=== PATIENT | male | born 1950 | race Caucasian/White ===

== ENCOUNTER 2016-06-25 17:04 | Emergency (ER) | payer MEDICARE, OTHER ==
[~2016-06-25] VITALS: Ht 180.3 cm; Wt 150.0 kg
[2016-06-25] VITALS (7 sets, daily range): BP systolic 123–185; BP diastolic 59–106; PULSE 75–108; RESP 16–28; O2SAT 94–99
[~2016-06-25 17:04] MED LIST: ASPI-956 PO; ATEN1TAB PO; GLU500 PO; LOVA20TA7 PO; MULT-1018 PO; OMEG100020 PO; ZES20T PO; ZINC1CAP PO
--- NOTE | 2016-06-25 18:27 | DRSVH ---
PROCEDURE: X-RAY CHEST, TWO VIEWS ([id number]) INDICATIONS: cough, congestion, fever TECHNIQUE: 2 views of the chest were acquired. COMPARISON: None. FINDINGS: Surgical changes and devices: None. Lungs and pleura: No pleural effusions or pneumothorax. Lungs are clear but the lungs are abnormal with pulmonary hyperexpansion to the degree that the diaphragms are prominently flattened on the late ral view. Mediastinum: Mediastinal contours are normal. Heart size is normal. Bones and chest wall: No suspicious bony abnormalities. Soft tissues appear unremarkable. IMPRESSION: Flattened diaphragms bilaterally, COPD is suspected. No pneumonia. Dictated by: Brandt Dubon M.D. on 06/25/2016 at 18:25 Approved by: Brandt Dubon M.D. on 06/25/2016 at 18:25
--- NOTE | 2016-06-25 18:49 | ED.REPORT ---
HPI-Dyspnea / Wheezing Date of Service Jun 25, 2016 ED Provider: Angel Aguilar DO A 66 year old male with a history of COPD, hypertension, and diabetes presents to the ED complaining of a cough onset four days ago. The cough worsened two days ago to the point that his ribs began to ache. He also began wheezing at this point with an intermittent fever. The wheezing this afternoon when he woke from a nap. He describes his breathing as "sounding like an accordion." The pt has received an influenza vaccination this year. He is also on Lasix for fairly recent lower extremity edema. Nursing Notes Stated Complaint: CHEST CONGESTION Chief Complaint: FLU/Cold Symptoms Nursing Notes Reviewed: Yes Allergies: Coded Allergies: No Known Allergies (Verified Allergy, 11/21/12) Scheduled ASPIRIN-Expunged Drug, Do Not Renew! ([facility] ASPIRIN-Expunged Drug, Do Not [place]) 81 Mg Tablet. 81 MG PO DAILY Atenolol/Chlorthalidone-Expunged Drug! (Atenolol/Chlorthal 100/25-Expunged Drug! ) 1 Tab Tablet 1 TAB PO DAILY Lisinopril-Expunged Drug, Do Not Renew! (Lisinopril-Expunged Drug, Do Not Renew! ) 20 Mg Tablet 40 MG PO DAILY Lovastatin-Expunged Drug, Do Not Renew! (Mevacor-Expunged Drug, Do Not Renew!) 20 Mg Tablet 20 MG PO DAILY Lovastatin 20 MG -> Simvastatin 10 MG Mevacor 20 MG -> Simvastatin 10 MG MULTIVITAMIN-Expunged Drug, Do Not Renew! (MULTI VITAMIN -Expunged Drug, Do Not Renew!) 1 Each Tablet 1 EACH PO DAILY Metformin-Expunged Drug, Do Not Renew! (Metformin-Expunged Drug, Do Not Renew!) 500 Mg Tablet 1,000 MG PO DAILY TAKE WITH EVENING MEAL [place]-3/Dha/Epa/Fish Oil-Expunged Drug, Do No (Fish Oil 1,000 Mg-Expunged Drug, Do Not Renew) 1 Each Capsule. 1 EACH PO DAILY Zinc Mth/Copper/Saw Palm/Gnsg (Prostate Health Formula Sftgel) 1 Each Capsule 1 EACH PO DAILY General Time Seen by MD: 18:49 Chief Complaint Cough Hx Obtained From: Patient Arrived By: Walk-in Sudden in Onset?: No Onset Occurred: 4 days ago Symptom Duration: Since onset Recent Healthcare: No recent hospitalization, Recent doctor visit Similar Sx Previous: Yes Similar Sx Previous: No Past Medical History Past Medical History COPD hypertension arthritis diabetes depression Past Surgical History Reports: Tonsillectomy Smoking History Former Smoker (quit 40 years ago) Social History Other Social History: Good social support Ambulatory Status Independent Review of Systems Review of Systems Note: aching ribs secondary to cough Constitutional: Reports: Fever Respiratory: Reports: Non-productive cough, Wheezing Cardiovascular: Denies: Chest pain Musculoskeletal: Denies: Back pain, Neck pain Skin: Denies Rash Complete sys rev & neg: except as marked. Physical Exam Initial Vital Signs Vital Signs (First) Date Time Temp Pulse Resp B/P Pulse Ox O2 Delivery O2 Flow Rate FiO2 06/25/16 17:15 36.7 80 24 182/100 95 06/25/16 19:07 Room Air Initial VS: Reviewed General/Constitutional: Awake, Alert Neck: Atraumatic, Supple, Full range of motion Respiratory / Chest: Atraumatic, Breath sounds = bilat, No respiratory distress Wheezing / Retractions: Positive: Prolonged exp phase faint expiratory wheeze bilaterally Cardiovascular: Heart rate NL, Regular rhythm, Heart sounds NL, No murmurs ENT: Atraumatic, Airway patent, Mucous membranes moist, Pharynx NL, Nose exam NL Abdomen: Atraumatic, Soft, Non-tender Back: Atraumatic, Full range of motion Lower Extremity / Pelvis / MS: Atraumatic, Full range of motion pitting edema bilaterally Skin: Atraumatic, Color NL, No rash, Warm, Dry Neurologic: Oriented X3, Speech NL, No motor deficits, No sensory deficits Upper Extremity / MS: Atraumatic, Full range of motion Psychiatric: Affect NL, Mood NL Interpretation & Diagnostics Lab Results Interpretation Result Diagram: 06/25/16192706/25/161927 Test 06/25/16 19:28 White Blood Count 3.9th/mm3 (3.8-10.1) Red Blood Count 4.72mil/mm3 (4.40-5.80) Hemoglobin 13.7g/dL (13.8-17.2) Hematocrit 41.1% (41.0-50.0) Mean Corpuscular Volume 87.1fL (81-100) Mean Corpuscular Hemoglobin 29.0pg (27.0-35.0) Mean Corpuscular Hemoglobin Concent 33.3% (32.0-37.0) Red Cell Distribution Width 13.5% (12.3-15.4) Platelet Count 141bil/L (150-400) Neutrophils (%) (Auto) 54.6% (40-74) Lymphocytes (%) (Auto) 24.2% (14-46) Monocytes (%) (Auto) 16.1% (4-12) Eosinophils (%) (Auto) 3.6% (0-5) Basophils (%) (Auto) 1.0% (0-3) Sodium Level 137mEq/L (134-144) Potassium Level 3.6mEq/L (3.5-5.2) Chloride Level 97mEq/L (97-108) Carbon Dioxide Level 27mmol/L (18-29) Blood Urea Nitrogen 13mg/dL (8-27) Creatinine 0.87mg/dL (0.76-1.27) Estimat Glomerular Filtration Rate 93mL/min (>59) Glucose Level 149mg/dL (60-99) Calcium Level 9.2mg/dL (8.5-10.1) Total Bilirubin 0.4mg/dL (0.0-1.2) Aspartate Amino Transf (AST/SGOT) 32U/L (0-50) Alanine Aminotransferase (ALT/SGPT) 49U/L (0-44) Alkaline Phosphatase 67U/L (25-160) Troponin T < 0.010ug/L (0.0-0.011) Pro-B-Type Natriuretic Peptide 245.4pg/mL (0-376) Total Protein 6.8g/dL (6.4-8.4) Albumin 3.9g/dL (3.4-5.0) Lab Results Interpretation: influenza A positive Pulse Oximetry Interpretation Pulse Oximetry Interpretation: 95% on room air Pulse Oximetry: Pulse Ox normal ECG Interpretation ECG Interpretation: normal sinus rhythm with a rate of [address] segments paucity of pathology seen Time: 19:09 Interpreted by: ED physician X-Ray Chest Interpretation Chest Xray Interpretation: IMPRESSION: Flattened diaphragms bilaterally, COPD is suspected. No pneumonia. Dictated by: Brandt Dubon M.D. on 06/25/2016 at 18:25 Approved by: Brandt Dubon M.D. on 06/25/2016 at 18:25 Interpretation / Wet Read by: Interpret - Radiologist Re-Eval/Medical Decision Med Decision/Clinical Course 66-year-old male with a history of COPD presents with an acute exacerbation of chronic obstructive pulmonary disease. He has been sick for several days including fever and chills. He has been diagnosed with nasopharyngeal swab positive influenza A. He certainly has an influenza A presentation. He was medicated with nebs steroids and Tamiflu. I also placed him on antibiotics due to the fact that he has COPD. After multiple treatments and steroids he looked and felt much better. His lungs were clear. He is not tachypnea, tachycardic or hypoxic. Pulmonary emboli felt to be highly unlikely. He did not have any pleuritic pain. He did not have any hemoptysis. He does not have any shortness of breath and he clearly has influenza A. His primary care physician will follow up within about a week. He will take Tamiflu doxycycline and prednisone as instructed. He is to return if he has any problems or any worsening symptoms. Source of Hx: Old records Re-Evaluation/Progress #1: Time of Eval: 21:02 Patient Status: Condition improved Re-Evaluation/Progress Note: Pt rechecked, who is feeling better. There is a faint wheeze in his left lung, but lungs are almost clear. Re-Evaluation/Progress #2: Time of Eval: 21:42 Patient Status: Condition improved Re-Evaluation/Progress Note: Pt rechecked, whose condition has improved. Radiology results, diagnosis, and the plan for discharge are discussed. The pt understands and agrees with the plan. All questions are addressed at this time. Counseled Regarding: Diagnosis, Lab results, Need for follow-up, When/why to return to ED Discharge & Departure Impression: Primary Impression: Influenza due to influenza A virus Additional Impression: COPD with acute exacerbation Disposition: Home Discharge Condition All VS Reviewed: Yes Condition: Stable Patient Instructions: Chronic Obstructive Pulmonary Disease (ED), Influenza (ED ) Additional Instructions: Use your inhaled steroids and bronchodilators as directed. Use the spacer. Prednisone daily for 4 more days. Doxycycline twice daily for 5 days. Avoid direct sunlight and solar lamps while taking the doxycycline to prevent a photosensitivity burn. You tested positive for influenza A. Take Tamiflu twice daily for 5 days. Contact your doctor's office tomorrow and set up a follow-up appointment for the next 7-10 days. Do not hesitate to return if you have any problems or any worsening symptoms. If you cough up any blood or you have any pain with breathing or any shortness of breath then come back to the emergency department. The influenza should run its course in the next 5-7 days. Your chest x-ray was normal and your laboratory work was reassuring. Referrals: Marlon Schmid DO (PCP) Michelle Attestation Portions of this note were transcribed by Jose A Son I, Dr. Aguilar personally performed the history, physical exam and medical decision-making; I reviewed and confirmed the accuracy of the information in the transcribed note. Signed by: Michelle Angulo, 06/25/16 and 22:00. copies to: Marlon Schmid Todd P DO Jun 25, 2016 18:49 JOSE A SON Jun 25, 2016 19:16
[2016-06-25] MEDS ORDERED: Albuterol-Ipratropium 3 mL Inhalation Solution NEB ONE (19:00)
[2016-06-25] MEDS ORDERED: MethylprednisoLONE Sodium Succinate 62.5 mg/mL 2 mL Inj IVPUSH ONE (19:00)
[2016-06-25 19:44] LABS: EOSINOPHILS % (AUTO) 3.6 % (0-5); MONOCYTES % (AUTO) 16.1 % (4-12); Mean Corpuscular Volume 87.1 fL (81-100); NEUTROPHILS % (AUTO) 54.6 % (40-74); Platelet Count 141 bil/L (150-400)
[2016-06-25 20:32] LABS: TROPONIN T < 0.010 ug/L (0.0-0.011)
[2016-06-25] MEDS ORDERED: Albuterol 2.5 mg/3 mL Inhalation Solution NEB ONE (21:05)
[2016-06-26] MEDS ORDERED: Sodium Chloride LOK Flush 10 mL Syringe IVFLUSH SCH (00:30)
== END 2016-06-25 21:56 | disposition home or self-care (01) ==
LOC: SED 17:04
DX: J10.1 Influenza due to other identified influenza virus with other respiratory manifestations (principal); J44.1 Chronic obstructive pulmonary disease with (acute) exacerbation; R60.0 Localized edema; I10 Essential (primary) hypertension; E11.9 Type 2 diabetes mellitus without complications; Z87.891 Personal history of nicotine dependence